=== PATIENT | male | born 1950 | race Caucasian/White ===

== ENCOUNTER 2021-01-18 19:29 | Inpatient (IN) | payer OTHER, MEDICARE ==
[~2021-01-18] VITALS: Ht 182.9 cm; Wt 136.9 kg
[2021-01-18 19:51] LABS: BASO # 0.1 x10^3/uL (0.0-0.2); BASO % 1 % (0-3); EOS # 0.6 x10^3/uL (0.0-0.7); EOS % 5 % (0-3); HEMATOCRIT 51.9 % (39.0-53.0); HEMOGLOBIN 17.6 g/dL (13.0-17.5); LYMPH # 2.2 x10^3/uL (1.0-4.8); LYMPH % 19 % (24-48); MEAN CORPUSCULAR HEMOGLOBIN 32 pg (25-35); MEAN CORPUSCULAR HGB CONC 34 g/dL (31-37); MEAN CORPUSCULAR VOLUME 96 fL (79-100); MONO # 0.9 x10^3/uL (0.0-1.1); MONO % 8 % (0-9); NEUT % 68 % (31-73); PLATELET COUNT 275 x10^3/uL (140-400); RED BLOOD COUNT 5.43 x10^6/uL (4.30-5.70); RED CELL DISTRIBUTION WIDTH 14.1 % (11.5-14.5); WHITE BLOOD COUNT 11.9 x10^3/uL (4.0-11.0)
--- NOTE | 2021-01-18 19:55 | RAD ---
EXAMINATION: Chest radiograph. VIEWS: Single view COMPARISON: None INDICATION:70 years, Male, chest pain. FINDINGS: Enlarged cardiomediastinal silhouette. Tortuous thoracic aorta. Bilateral perihilar and bibasilar pat kali and reticular opacities. Right costophrenic angle is off image. No sizable pleural effusion or pn eumothorax. No acute osseous process. Right shoulder arthroplasty. IMPRESSION: Bilateral perihilar and bibasilar patchy and reticular opacities. Differential includes pulmonary ana ma, versus multifocal pneumonia. Electronically signed by: Chelsey Lorenz MD (01/18/2021 7:52 PM) [facility]
[2021-01-18 20:00] LABS: CALCIUM 8.7 mg/dL (8.5-10.1); CREATININE 1.3 mg/dL (0.7-1.3); GFR 54.7; POTASSIUM 4.7 mmol/L (3.5-5.1)
[2021-01-18 20:06] LABS: ALBUMIN 3.8 g/dL (3.4-5.0); ALBUMIN/GLOBULIN RATIO 0.9 (1.0-1.7); MAGNESIUM 2.2 mg/dL (1.8-2.4); TOTAL BILIRUBIN 0.8 mg/dL (0.2-1.0)
[2021-01-18] MEDS ORDERED: IOHEXOL 350 MG/ML 100 ML VIAL. IV ONE (20:45)
[2021-01-18] MEDS ORDERED: MORPHINE SULFATE 4 MG/ML INJ. IVP ONE (20:45)
[2021-01-18] MEDS ORDERED: CONTRAST GIVEN. MC PRN (20:45)
--- NOTE | 2021-01-18 21:02 | PHYS DOC ---
Past Medical History Past Medical History: Hypertension, Other (PE) Past Surgical History: Other (left shoulder replacement, knee surgery) Smoking Status: Former Smoker Alcohol Use: None Drug Use: None General Adult EDM: Chief Complaint: CHEST PAIN HPI: HPI: Patient is a 70 year old male who presented to ER for evaluation of left-sided chest pain, left scapular pain started tonight. Patient said the pain is sharp stabbing in nature, worse when he takes deep breaths or cough. Patient had have a cough for about 3 weeks, he was seen by his doctor, was tested negative for COVID-19, was prescribed Zithromax. Patient finished the antibiotic already , patient was doing much better with the cough but still having trouble breathing with exertion. Patient is a former smoker. Patient denies history of diabetic, no history of heart problem . Patient has history of left shoulder replacement, left knee replacement. 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 Patient is currently not on any blood thinner. Patient said he was vaccinated for COVID-19. Patient says 20 years ago he had a mass in his left lung, thoracic surgeon removed it, it came back benign. Patient said about 2 weeks ago he fell off of his staircase, rolled down on his back. Review of Systems: Review of Systems: Constitutional: Denies fever or chills. [] Eyes: Denies change in visual acuity. [] HENT: Denies nasal congestion or sore throat. [] Respiratory: Positive for cough and trouble breathing. Cardiovascular: Positive for left-sided chest pain. GI: Denies abdominal pain, nausea, vomiting, bloody stools or diarrhea. [] : Denies dysuria. [] Musculoskeletal: Denies back pain or joint pain. [] Integument: Denies rash. [] Neurologic: Denies headache, focal weakness or sensory changes. [] Endocrine: Denies polyuria or polydipsia. [] Lymphatic: Denies swollen glands. [] Psychiatric: Denies depression or anxiety. [] Heart Score: C/O Chest Pain: Yes HEART Score for Chest Pain: HEART Score for Chest Pain Response (Comments) Value History Moderately Suspicious 1 ECG Nonspecific Repolarizatio 1 Age > 65 2 Risk Factors >3 Risk Factors or Hx CAD 2 Troponin < Normal Limit 0 Total 6 Risk Factors: Risk Factors: DM, Current or recent (<one month) smoker, HTN, HLP, family history of CAD, obesity. Risk Scores: Score 0 - 3: 2.5% MACE over next 6 weeks - Discharge Home Score 4 - 6: 20.3% MACE over next 6 weeks - Admit for Clinical Observation Score 7 - 10: 72.7% MACE over next 6 weeks - Early Invasive Strategies Current Medications: Current Medications Medications (Trade) Dose Ordered Sig/Jignesh Start Time Stop Time Status Last Admin Dose Admin Info (CONTRAST GIVEN -- Rx MONITORING) 1 each PRN DAILY PRN 01/18/21 20:45 01/20/21 20:44 Iohexol (Omnipaque 350 Mg/ml) 90 ml 1X ONCE 01/18/21 20:45 01/18/21 20:46 DC Morphine Sulfate (Morphine Sulfate) 4 mg 1X ONCE 01/18/21 20:45 01/18/21 20:46 DC 01/18/21 20:46 4 MG Allergies: Allergies: Allergies Coded Allergies Type Severity Reaction Last Updated Verified No Known Drug Allergies 01/18/21 No Physical Exam: PE: Constitutional: Well developed, well nourished, no acute distress, non-toxic appearance. [] HENT: Normocephalic, atraumatic, bilateral external ears normal, oropharynx moist, no oral exudates, nose normal. [] Eyes: PERRLA, EOMI, conjunctiva normal, no discharge. [] Neck: Normal range of motion, no tenderness, supple, no stridor. [] Cardiovascular:Heart rate regular rhythm, no murmur [] Lungs & Thorax: Bilateral breath sounds clear to auscultation [] Abdomen: Bowel sounds normal, soft, no tenderness, no masses, no pulsatile masses. [] Skin: Warm, dry, no erythema, no rash. [] Back: No tenderness, no CVA tenderness. [] Extremities: No tenderness, no cyanosis, no clubbing, ROM intact, no edema. [] Neurologic: Alert and oriented X 3, normal motor function, normal sensory function, no focal deficits noted. [] Psychologic: Affect normal, judgement normal, mood normal. [] Current Patient Data: Labs: Laboratory Tests Test 01/18/21 19:40 White Blood Count 11.9 x10^3/uL (4.0-11.0) H Red Blood Count 5.43 x10^6/uL (4.30-5.70) Hemoglobin 17.6 g/dL (13.0-17.5) H Hematocrit 51.9 % (39.0-53.0) Mean Corpuscular Volume 96 fL (79-100) Mean Corpuscular Hemoglobin 32 pg (25-35) Mean Corpuscular Hemoglobin Concent 34 g/dL (31-37) Red Cell Distribution Width 14.1 % (11.5-14.5) Platelet Count 275 x10^3/uL (140-400) Neutrophils (%) (Auto) 68 % (31-73) Lymphocytes (%) (Auto) 19 % (24-48) L Monocytes (%) (Auto) 8 % (0-9) Eosinophils (%) (Auto) 5 % (0-3) H Basophils (%) (Auto) 1 % (0-3) Neutrophils # (Auto) 8.0 x10^3/uL (1.8-7.7) H Lymphocytes # (Auto) 2.2 x10^3/uL (1.0-4.8) Monocytes # (Auto) 0.9 x10^3/uL (0.0-1.1) Eosinophils # (Auto) 0.6 x10^3/uL (0.0-0.7) Basophils # (Auto) 0.1 x10^3/uL (0.0-0.2) Sodium Level 137 mmol/L (136-145) Potassium Level 4.7 mmol/L (3.5-5.1) Chloride Level 99 mmol/L (98-107) Carbon Dioxide Level 28 mmol/L (21-32) Anion Gap 10 (6-14) Blood Urea Nitrogen 15 mg/dL (8-26) Creatinine 1.3 mg/dL (0.7-1.3) Estimated GFR (Cockcroft-Gault) 54.7 BUN/Creatinine Ratio 12 (6-20) Glucose Level 102 mg/dL (70-99) H Calcium Level 8.7 mg/dL (8.5-10.1) Magnesium Level 2.2 mg/dL (1.8-2.4) Total Bilirubin 0.8 mg/dL (0.2-1.0) Aspartate Amino Transferase (AST) 26 U/L (15-37) Alanine Aminotransferase (ALT) 50 U/L (16-63) Alkaline Phosphatase 71 U/L (46-116) Troponin I High Sensitivity 11 ng/L (4-75) YE-Kmg-O-Type Natriuretic Peptide 47 pg/mL (0-124) Total Protein 8.0 g/dL (6.4-8.2) Albumin 3.8 g/dL (3.4-5.0) Albumin/Globulin Ratio 0.9 (1.0-1.7) L Lipase 144 U/L (73-393) Laboratory Tests 01/18/21 19:40 Laboratory Tests 01/18/21 19:40 Vital Signs: Vital Signs Date Time Temp Pulse Resp B/P (MAP) Pulse Ox O2 Delivery O2 Flow Rate FiO2 01/18/21 20:46 Room Air EKG: EKG: EKG was done at 7:42 PM, heart rate 100 bpm, sinus rhythm, incomplete right bundle branch block, no ST segment elevation, normal axis Radiology/Procedures: Radiology/Procedures: [][address] [id number] IMAGING REPORT Signed PATIENT: MARCO CASE ACCOUNT: [id number] : 1950 LOCATION: ER AGE: 70 SEX: M EXAM STATUS: REG ER ORD. PHYSICIAN: BARBARA AGUIRRE DO REASON: CHEST PAIN PROCEDURE: PORTABLE CHEST 1V EXAMINATION: Chest radiograph. VIEWS: Single view COMPARISON: None INDICATION:70 years, Male, chest pain. FINDINGS: Enlarged cardiomediastinal silhouette. Tortuous thoracic aorta. Bilateral perihilar and bibasilar patchy and reticular opacities. Right costophrenic angle is off image. No sizable pleural effusion or pneumothorax. No acute osseous process. Right shoulder arthroplasty. IMPRESSION: Bilateral perihilar and bibasilar patchy and reticular opacities. Differential i ncludes pulmonary edema, versus multifocal pneumonia. Electronically signed by: Agata Lorenz MD (01/18/2021 7:52 PM) [facility] DICTATED and SIGNED BY: AGATA LORENZ MD DATE: 01/18/[id number] [id number] [facility] [place] [address] IMAGING REPORT Signed PATIENT: MARCO CASE ACCOUNT: [id number] : 1950 LOCATION: ER AGE: 70 SEX: M EXAM STATUS: REG ER ORD. PHYSICIAN: BARBARA AGUIRRE DO REASON: chest pain, soa PROCEDURE: CT ANGIOGRAPHY CHEST Exam: CT of chest with contrast INDICATION: Chest pain, short of air TECHNIQUE: Sequential axial images through the chest obtained following the administration of 90 mL of Isovue-370 IV contrast. Sagittal and coronal reformatted images were reconstructed from the axial data and reviewed. 3-D refo rmatted images were reconstructed from the axial data and reviewed. Exposure: One or more of the following in the visualized dose reduction techniques were utilized for this examination: 1. Automated exposure control 2. Adjustment of the MA and/or KV according to patient size 3. Use of iterative of reconstructive technique Comparisons: Chest x-ray same day FINDINGS: Visual is portions of the thyroid are unremarkable. No enlarged mediastinal lymph nodes are identified. It size is normal. No pericardial effusion. Thoracic aorta has a normal course and caliber. Pulmonary artery is not enlarged. Extensive pulmonary emboli noted within the right lung involving the right main pulmonary artery extending into lobar and segmental branches. Airways are patent. Consolidative changes noted in the left lower lobe. Cystic area at the left major fissure, may relate to sequela from prior trauma. No pneumothorax. There is a trace left pleural effusion. Visualized upper abdomen is unremarkable. No suspicious osseous lesions or acute fractures. Postprocedural changes at the posterior left ribs. IMPRESSION: 1. Extensive pulmonary embolus within the right lung. There is mild enlargement of the right lateral ventricle, correlate with troponin for right heart strain. 2. Consolidation in the left lower lobe correlate for pneumonia. 3. Left pleural effusion. 4. Sequela of the extensive trauma or surgery to the left thorax. Electronically signed by: David Biggs MD (01/18/2021 9:14 PM) [facility] DICTATED and SIGNED BY: DAVID BIGGS MD DATE: 01/18/21 [id number] Course & Med Decision Making: Course & Med Decision Making Pertinent Labs and Imaging studies reviewed. (See chart for details) Patient is a 70-year-old male who present to ER due to left-sided chest pain. Patient was found to have extensive PE on the right side of his lung, he also had consolidation at the base of his left lung. Patient will be admitted to hospital for heparin drip to treat PE and IV antibiotics for the pneumonia. Di scussed with hospitalist on-call Dr. Ramirez who agreed to admit the patient. Lyndsay Disclaimer: Lyndsay Disclaimer: This electronic medical record was generated, in whole or in part, using a voice recognition dictation system. Departure Departure Impression: Primary Impression: PE (pulmonary thromboembolism) Additional Impression: Pneumonia Disposition: ADMITTED INPATIENT Admitting Physician: ALYSA (DR. RAMIREZ) Condition: STABLE Referrals: UNKNOWN PCP NAME (PCP) BARBARA AGUIRRE DO Jan 18, 2021 21:01
--- NOTE | 2021-01-18 21:16 | RAD ---
Exam: CT of chest with contrast INDICATION: Chest pain, short of air TECHNIQUE: Sequential axial images through the chest obtained following the administration of 90 mL o f Isovue-370 IV contrast. Sagittal and coronal reformatted images were reconstructed from the axial d tequila and reviewed. 3-D reformatted images were reconstructed from the axial data and reviewed. Exposure: One or more of the following in the visualized dose reduction techniques were utilized for this examination: 1. Automated exposure control 2. Adjustment of the MA and/or KV according to patient size 3. Use of iterative of reconstructive technique Comparisons: Chest x-ray same day FINDINGS: Visual is portions of the thyroid are unremarkable. No enlarged mediastinal lymph nodes are identifie d. It size is normal. No pericardial effusion. Thoracic aorta has a normal course and caliber. Pulmonary artery is not enlarged. Extensive pulmonary emboli noted within the right lung involving the right m ain pulmonary artery extending into lobar and segmental branches. Airways are patent. Consolidative changes noted in the left lower lobe. Cystic area at the left major fissure, may relate to sequela from prior trauma. No pneumothorax. There is a trace left pleural effusion. Visualized upper abdomen is unremarkable. No suspicious osseous lesions or acute fractures. Postprocedural changes at the posterior left ribs. IMPRESSION: 1. Extensive pulmonary embolus within the right lung. There is mild enlargement of the right lateral ventricle, correlate with troponin for right heart strain. 2. Consolidation in the left lower lobe correlate for pneumonia. 3. Left pleural effusion. 4. Sequela of the extensive trauma or surgery to the left thorax. Electronically signed by: David Britton MD (01/18/2021 9:14 PM) [facility]
[2021-01-18] MEDS ORDERED: PIPERACILLIN/TAZOBACTAM 3.375 GM in IV NORMAL SALINE 50ML 50 ML IV ONE (21:30)
[2021-01-18] MEDS ORDERED: PIP/TAZO PER PHARMACY MC PRN (21:45)
[2021-01-18] MEDS ORDERED: ONDANSETRON PF 4 MG/2 ML VIAL. IVP PRN (21:45)
[2021-01-18] MEDS ORDERED: HEPARIN for IV BOLUS 10,000 UNIT/10 ML VIAL. IV PRN ×2 (21:45)
[2021-01-18] MEDS: IV NORMAL SALINE 1000ML BAG 1,000 ML IV SCH (21:45)
[2021-01-18] MEDS ORDERED: HEPARIN for IV BOLUS 10,000 UNIT/10 ML VIAL. IV ONE (21:45)
[2021-01-18 22:02] LABS: PROTHROMBIN TIME PATIENT 14.8 SEC (11.7-14.0)
[2021-01-18] MEDS: HEPARIN 25,000UTS/250ML PREMIX 250 ML IV PRN (22:34)
[2021-01-19] VITALS (7 sets, daily range): BP systolic 98–156; BP diastolic 49–92
[2021-01-19] MEDS: MORPHINE SULFATE 4 MG/ML INJ. IVP PRN ×6 (00:27→21:34)
[2021-01-19] MEDS ORDERED: LISI10TA16 PO (00:47)
[2021-01-19] MEDS ORDERED: LEVO75TA5 PO (00:47)
--- NOTE | 2021-01-19 04:46 | EKG ---
[facility] [address] [place] [address] Test Date: 2021-01-18 Test Time: 19:42:13 Pat Name: MARCO CASE Department: Room: 4 1 Gender: M Chef De Froid: : 1950 Requested By: BARBARA AGUIRRE Order Number: [id number] Reading MD: Christopher Kolb Measurements Intervals Rachel Rate: 100 P: 32 SD: 166 QRS: 29 QRSD: 98 T: 46 QT: 334 QTc: 434 Interpretive Statements SINUS RHYTHM INCOMPLETE RIGHT BUNDLE BRANCH BLOCK NON SPECIFIC ST-T WAVE CHANGES Electronically Signed On 01-25-2021 10:40:34 [employer] by Christopher Kolb
[2021-01-19] MEDS: PIPERACILLIN/TAZOBACTAM 3.375 GM in IV NORMAL SALINE 50ML 50 ML IV SCH ×4 (06:44→23:57)
--- NOTE | 2021-01-19 07:56 | PDOC1 ---
History and Physical Date of Service: DOS: DATE: 01/19/21 TIME: 07:45 Chief Complaint: Chief Complain: Back pain History of Present Illness: HPI: History obtained from discussion with the ED physician and chart review: 70-year-old male with past medical history of hypertension and history of pulmonary embolism after knee surgery when he was 17 years old comes in with left-sided chest pain and left-sided scapular pain after falling. He states that after he fell from standing position on around 2 steps he felt sharp stabbi ng pain in nature and associated with deep breathing and a cough. Apparently patient has also had a cough for about 3 weeks and he was tested for Covid and was negative and is given Zithromax. Patient did finish and complete his antibiotic course was feeling better with the cough but still have trouble breathing with exertion. Hospice medical history of smoking. Patient did take warfarin after his first pulmonary embolism but stopped it after about 6 to 8 months. Patient is COVID-19 vaccinated. Patient currently denies any fevers, shortness of breath, abdominal pain, diarrhea, nausea vomiting, phlegm production, hematuria or dysuria. Past Medical/Surgical History: PMH/PSH: Past Medical History: Hypertension, PE Past Surgical History: Left pulmonary resection for benign mass, left shoulder replacement, knee surgery Allergies: Allergies: Coded Allergies: No Known Drug Allergies (Unverified , 01/18/21) Family History: Family History: Reviewed with no relevant findings Social History: Social History: Smoking Status: Former Smoker Alcohol Use: None Drug Use: None Current Medications: Current Medications Current Medications Morphine Sulfate (Morphine Sulfate) 4 mg 1X ONCE IVP Last administered on 01/18/21at 20:46; Start 01/18/21 at 20:45; Stop 01/18/21 at 20:46; Status DC Iohexol (Omnipaque 350 Mg/ml) 90 ml 1X ONCE IV Last administered on 01/18/21at 21:02; Start 01/18/21 at 20:45; Stop 01/18/21 at 20:46; Status DC Info (CONTRAST GIVEN -- Rx MONITORING) 1 each PRN DAILY PRN MC SEE COMMENTS; Start 01/18/21 at 20:45; Stop 01/20/21 at 20:44 Piperacillin Sod/ Tazobactam Sod 3.375 gm/Sodium Chloride 50 ml @ 100 mls/hr 1X ONCE IV Last administered on 01/18/21at 22:25; Start 01/18/21 at 21:30; Stop 01/18/21 at 21:59; Status DC Ondansetron HCl (Zofran) 4 mg PRN Q8HRS PRN IVP NAUSEA/VOMITING; Start 01/18/21 at 21:45; Stop 01/19/21 at 21:44 Morphine Sulfate (Morphine Sulfate) 4 mg PRN Q2HR PRN IVP PAIN Last administered on 01/19/21at 05:15; Start 01/18/21 at 21:45; Stop 01/19/21 at 21:44 Sodium Chloride 1,000 ml @ 75 mls/hr [id number] IV Last administered on 01/18/21at 21:45; Start 01/18/21 at 21:45; Stop 01/19/21 at 21:44 Piperacillin Sod/ Tazobactam Sod (Zosyn Per Pharmacy) 1 each PRN DAILY PRN MC SEE COMMENTS; Start 01/18/21 at 21:45 Heparin Sodium (Porcine) (Heparin Sodium) 10,000 unit 1X ONCE IV Last administered on 01/18/21at 22:33; Start 01/18/21 at 21:45; Stop 01/18/21 at 21:51 ; Status DC Heparin Sodium/ Dextrose 250 ml @ 21.41 mls/ hr CONT PRN IV PER PROTOCOL Last administered on 01/18/21at 22:34; Start 01/18/21 at 21:45 Heparin Sodium (Porcine) (Heparin Sodium) 4,000 unit PRN Q6HRS PRN IV FOR UFH LEVEL LESS THAN 0.2; Start 01/18/21 at 21:45 Heparin Sodium (Porcine) (Heparin Sodium) 2,000 unit PRN Q6HRS PRN IV FOR UFH LEVEL 0.2 - 0.29; Start 01/18/21 at 21:45 Piperacillin Sod/ Tazobactam Sod 3.375 gm/Sodium Chloride 50 ml @ 100 mls/hr Q6HRS IV Last administered on 01/19/21at 06:44; Start 01/19/21 at 06:00 Active Scripts Active Reported Lisinopril 10 Mg Tablet 10 Mg PO DAILY Levothyroxine Sodium 75 Mcg Tablet 75 Mcg PO DAILYAC ROS: Review of Systems Review of System REVIEW OF SYSTEMS: GENERAL: Denies weakness SKIN: No bruising, hair changes or rashes. EYES: No blurred, double or loss of vision. NOSE AND THROAT: No history of nosebleeds, hoarseness or sore throat. HEART: No history of palpitations, chest pain or shortness of breath on exertion. LUNGS: Denies cough, hemoptysis, wheezing or shortness of breath. GASTROINTESTINAL: Denies changes in appetite, nausea, vomiting, diarrhea or constipation. GENITOURINARY: No history of frequency, urgency, hesitancy or nocturia. NEUROLOGIC: Denies history of numbness, tingling, or tremor. PSYCHIATRIC: No history of panic, anxiety or depression. ENDOCRINE: No history of heat or cold intolerance, polyuria or polydipsia. EXTREMITIES: Denies joint pain, pain on walking or stiffness. Physical Exam: Vital Signs: Vital Signs Date Time Temp Pulse Resp B/P (MAP) Pulse Ox O2 Delivery O2 Flow Rate FiO2 01/19/21 05:45 94 Nasal Cannula 2.0 01/19/21 03:35 97.5 83 20 98/49 (65) 97.5 Physcial Exam: GEN: No apparent distress. Alert and oriented HEENT: Normal cephalic, atraumatic, external auditory canals are patent EYES: Extraocular muscles are intact, pupil are equally round and reactive to light and accommodation MUSCULOSKELETAL: Well developed , well nourished, good range of motion ENDOCRINE: No thyromegaly was palpated LYMPHATICS: No cervical chain or axillary nodes were noted HEMATOPOIETIC: No bruising NECK: Supple, no JVD, no thyromegaly was noted LUNGS: Clear to auscultation in all lung martin without rhonchi or wheezing HEART: RRR, S!, S2 present. Peripheral pulses intact, no obvious murmurs noted ABDOMEN: Soft, nontender. Positive bowel sounds, no organomegaly, normal bowel sounds EXTREMITIES: Without clubbing, cyanosis, or edema. Pedal pulses intact. Negative Homans sign NEUROLOGIC: Normal speech and tone. A&O x 3, moves all extremities, no obvious focal deficits PSYCHIATRIC: Normal affect, normal mood. Stable SKIN: No ulcerations or rashes, good skin turgor, no jaundice VASCULAR: Good capillary refill, neurovascular bundle appears to be intact Labs: Labs: Laboratory Tests Test 01/18/21 19:40 01/18/21 21:25 01/18/21 21:29 01/18/21 21:46 White Blood Count 11.9 x10^3/uL (4.0-11.0) Red Blood Count 5.43 x10^6/uL (4.30-5.70) Hemoglobin 17.6 g/dL (13.0-17.5) Hematocrit 51.9 % (39.0-53.0) Mean Corpuscular Volume 96 fL (79-100) Mean Corpuscular Hemoglobin 32 pg (25-35) Mean Corpuscular Hemoglobin Concent 34 g/dL (31-37) Red Cell Distribution Width 14.1 % (11.5-14.5) Platelet Count 275 x10^3/uL (140-400) Neutrophils (%) (Auto) 68 % (31-73) Lymphocytes (%) (Auto) 19 % (24-48) Monocytes (%) (Auto) 8 % (0-9) Eosinophils (%) (Auto) 5 % (0-3) Basophils (%) (Auto) 1 % (0-3) Neutrophils # (Auto) 8.0 x10^3/uL (1.8-7.7) Lymphocytes # (Auto) 2.2 x10^3/uL (1.0-4.8) Monocytes # (Auto) 0.9 x10^3/uL (0.0-1.1) Eosinophils # (Auto) 0.6 x10^3/uL (0.0-0.7) Basophils # (Auto) 0.1 x10^3/uL (0.0-0.2) Sodium Level 137 mmol/L (136-145) Potassium Level 4.7 mmol/L (3.5-5.1) Chloride Level 99 mmol/L (98-107) Carbon Dioxide Level 28 mmol/L (21-32) Anion Gap 10 (6-14) Blood Urea Nitrogen 15 mg/dL (8-26) Creatinine 1.3 mg/dL (0.7-1.3) Estimated GFR (Cockcroft-Gault) 54.7 BUN/Creatinine Ratio 12 (6-20) Glucose Level 102 mg/dL (70-99) Lactic Acid Level 1.6 mmol/L (0.4-2.0) Calcium Level 8.7 mg/dL (8.5-10.1) Magnesium Level 2.2 mg/dL (1.8-2.4) Total Bilirubin 0.8 mg/dL (0.2-1.0) Aspartate Amino Transf (AST/SGOT) 26 U/L (15-37) Alanine Aminotransferase (ALT/SGPT) 50 U/L (16-63) Alkaline Phosphatase 71 U/L (46-116) Troponin I High Sensitivity 11 ng/L (4-75) 10 ng/L (4-75) NF-Jmt-G-Type Natriuretic Peptide 47 pg/mL (0-124) Total Protein 8.0 g/dL (6.4-8.2) Albumin 3.8 g/dL (3.4-5.0) Albumin/Globulin Ratio 0.9 (1.0-1.7) Lipase 144 U/L (73-393) SARS-CoV-2 Antigen (Rapid) Negative (NEGATIVE) Prothrombin Time 14.8 SEC (11.7-14.0) Prothromb Time International Ratio 1.2 (0.8-1.1) Activated Partial Thromboplast Time 32 SEC (24-38) Test 01/19/21 04:35 Heparin Anti-Xa Act, Unfractionated 0.84 IU/mL (0.30-0.70) Troponin I High Sensitivity 9 ng/L (4-75) Laboratory Tests Test 01/18/21 19:40 01/18/21 21:25 01/18/21 21:29 01/18/21 21:46 White Blood Count 11.9 x10^3/uL (4.0-11.0) Red Blood Count 5.43 x10^6/uL (4.30-5.70) Hemoglobin 17.6 g/dL (13.0-17.5) Hematocrit 51.9 % (39.0-53.0) Mean Corpuscular Volume 96 fL (79-100) Mean Corpuscular Hemoglobin 32 pg (25-35) Mean Corpuscular Hemoglobin Concent 34 g/dL (31-37) Red Cell Distribution Width 14.1 % (11.5-14.5) Platelet Count 275 x10^3/uL (140-400) Neutrophils (%) (Auto) 68 % (31-73) Lymphocytes (%) (Auto) 19 % (24-48) Monocytes (%) (Auto) 8 % (0-9) Eosinophils (%) (Auto) 5 % (0-3) Basophils (%) (Auto) 1 % (0-3) Neutrophils # (Auto) 8.0 x10^3/uL (1.8-7.7) Lymphocytes # (Auto) 2.2 x10^3/uL (1.0-4.8) Monocytes # (Auto) 0.9 x10^3/uL (0.0-1.1) Eosinophils # (Auto) 0.6 x10^3/uL (0.0-0.7) Basophils # (Auto) 0.1 x10^3/uL (0.0-0.2) Sodium Level 137 mmol/L (136-145) Potassium Level 4.7 mmol/L (3.5-5.1) Chloride Level 99 mmol/L (98-107) Carbon Dioxide Level 28 mmol/L (21-32) Anion Gap 10 (6-14) Blood Urea Nitrogen 15 mg/dL (8-26) Creatinine 1.3 mg/dL (0.7-1.3) Estimated GFR (Cockcroft-Gault) 54.7 BUN/Creatinine Ratio 12 (6-20) Glucose Level 102 mg/dL (70-99) Lactic Acid Level 1.6 mmol/L (0.4-2.0) Calcium Level 8.7 mg/dL (8.5-10.1) Magnesium Level 2.2 mg/dL (1.8-2.4) Total Bilirubin 0.8 mg/dL (0.2-1.0) Aspartate Amino Transf (AST/SGOT) 26 U/L (15-37) Alanine Aminotransferase (ALT/SGPT) 50 U/L (16-63) Alkaline Phosphatase 71 U/L (46-116) Troponin I High Sensitivity 11 ng/L (4-75) 10 ng/L (4-75) AW-[id number]-[id number]-Type Natriuretic Peptide 47 pg/mL (0-124) Total Protein 8.0 g/dL (6.4-8.2) Albumin 3.8 g/dL (3.4-5.0) Albumin/Globulin Ratio 0.9 (1.0-1.7) Lipase 144 U/L (73-393) SARS-CoV-2 Antigen (Rapid) Negative (NEGATIVE) Prothrombin Time 14.8 SEC (11.7-14.0) Prothromb Time International Ratio 1.2 (0.8-1.1) Activated Partial Thromboplast Time 32 SEC (24-38) Test 01/19/21 04:35 Heparin Anti-Xa Act, Unfractionated 0.84 IU/mL (0.30-0.70) Troponin I High Sensitivity 9 ng/L (4-75) Images: Images PROCEDURE: PORTABLE CHEST 1V IMPRESSION: Bilateral perihilar and bibasilar patchy and reticular opacities. Differential includes pulmonary edema, versus multifocal pneumonia. PROCEDURE: CT ANGIOGRAPHY CHEST IMPRESSION: 1. Extensive pulmonary embolus within the right lung. There is mild enlargement of the right lateral ventricle, correlate with troponin for right heart strain. 2. Consolidation in the left lower lobe correlate for pneumonia. 3. Left pleural effusion. 4. Sequela of the extensive trauma or surgery to the left thorax. Assessment/Plan Assessment/Plan Acute pulmonary embolism Acute community-acquired pneumonia, possible gram-negative organisms History of pulmonary embolism Morbid obesity Admit to hospitalist service for further management We will transition heparin drip to Eliquis tomorrow Continue with empiric IV antibiotics Pending blood and sputum cultures Pending Legionella urine antigen and MRSA PCR screen Heparin drip for DVT prophylaxis Cardiac diet CODE STATUS full Discussed with RN and SW Disposition inpatient management as above DPOA: A total of 45 minutes of critical care time was spent in reviewing chart, labs, and images. Discussed with RN and SW. In addition to my E/M visit, advance care planning done with A total time of 20 minutes was spent from 730 to 750 face to face in discussion regarding the patient's goals of care, CODE STATUS. Justifications for Admission Other Justification JENNIFER STEVENS MD Jan 19, 2021 07:56
[2021-01-19] MEDS: HEPARIN 25,000UTS/250ML PREMIX 250 ML IV PRN (09:04)
--- NOTE | 2021-01-19 10:56 | NUR ---
SS following for discharge planning. SS reviewed pt chart and discussed with pt RN. Pt is from home with spouse and is currently requiring oxygen at two liters nasal canula. COVID19 negative. Pt on Heparin drip. Pt on IV Zosyn. SS will continue to follow for discharge planning.
[2021-01-19] MEDS: IV NORMAL SALINE 1000ML BAG 1,000 ML IV SCH (11:05)
[2021-01-19] MEDS: IPRATROPIUM/ALBUTEROL 20/100mcg/INH INHALER. INH SCH ×3 (12:05→20:00)
[2021-01-19] MEDS ORDERED: IPRATRPIUM/ALBUTEROL 0.5/2.5MG 3 ML NEBU. NEB SCH (12:30)
[2021-01-19] MEDS: LEVOTHYROXINE 75 MCG TABLET PO SCH (17:33)
[2021-01-19] MEDS: APIXABAN 5 MG TABLET. PO SCH (20:03)
[2021-01-19] MEDS: LACTOBACILLUS RHAMNOSUS GG 1 CAPSULE. PO SCH (20:03)
--- NOTE | 2021-01-19 23:39 | NUR ---
PT SPO2 DROPPED DRAMATICALLY TO THE 70S HE FELL ASLEEP WHILE I WAS NEARBY. UPON ENTERING PT ROOM HE AWOKE AND RECOVERED TO MID 80S. UPON A CURSORY ASSESSMENT PT SEEMS TO HAVE RISKS FOR [place]. PT DID SAY THAT HE HAD A SLEEP STUDY YEARS AGO, IT WAS NOT GOOD BUT "THERE IS NO WAY HE WILL WEAR THE MASK". I DID INFORM THE PATIENT OF THE SEVERE DESATURATION, "PT STATES THAT HE'S OK" Addendum: 01/20/21 at 0009 by MEENU CARLOS RT INCREASED O2 FLOW TO 3LNC AND SO2 INCREASED TO 3LNC AND SPO2 WENT UP TO 94% WHILE HE'S AWAKE.
[2021-01-20] MEDS: MORPHINE SULFATE 2 MG/ML INJ. IV PRN ×3 (00:44→11:57)
[2021-01-20 02:30] VITALS: BP 148/82
[2021-01-20] MEDS: PIPERACILLIN/TAZOBACTAM 3.375 GM in IV NORMAL SALINE 50ML 50 ML IV SCH ×2 (06:21→11:59)
[2021-01-20 07:00] VITALS: BP 123/73
[2021-01-20] MEDS: APIXABAN 5 MG TABLET. PO SCH (08:09)
[2021-01-20] MEDS: IPRATROPIUM/ALBUTEROL 20/100mcg/INH INHALER. INH SCH ×2 (08:09→11:59)
[2021-01-20] MEDS: LACTOBACILLUS RHAMNOSUS GG 1 CAPSULE. PO SCH (08:09)
[2021-01-20] MEDS: LEVOTHYROXINE 75 MCG TABLET PO SCH (08:09)
[2021-01-20 08:35] LABS: HEMATOCRIT 46.4 % (39.0-53.0); HEMOGLOBIN 15.7 g/dL (13.0-17.5); RED BLOOD COUNT 4.79 x10^6/uL (4.30-5.70); RED CELL DISTRIBUTION WIDTH 14.3 % (11.5-14.5); WHITE BLOOD COUNT 8.9 x10^3/uL (4.0-11.0)
[2021-01-20 11:00] VITALS: BP 133/64
[2021-01-20] MEDS ORDERED: APIX5TAB PO (11:24)
[2021-01-20] MEDS ORDERED: DOXY100C3 PO (11:24)
[2021-01-20] MEDS ORDERED: AMOX1TAB58 PO (11:24)
--- NOTE | 2021-01-20 11:25 | DISCH ---
DISCHARGE INSTRUCTIONS Condition on Discharge Condition on Discharge: Stable Activity After Discharge Activity Instructions for Disc: Resume previous activity Exercise Instruction after Dis: Walk 15 min, 3 x per day Driving Instructions after Dis: Do not drive today Diet after Discharge Diet after Discharge: Cardiac Contacting the DRVaishali after DC Call your doctor for: Follow-Up Follow up with: PCP within 2 weeks of discharge Follow Up With: Vice President Media Relations MYKEL for sleep study JENNIFER STEVENS MD Jan 20, 2021 11:25
[2021-01-20] MEDS ORDERED: HYDROcodone/APAP 5/325MG 1 TAB TABLET PO PRN (13:45)
[2021-01-20] MEDS ORDERED: HYDR-2761 PO (13:47)
--- NOTE | 2021-01-20 14:07 | NUR ---
SS following up with discharge planning. SS reviewed pt chart and discussed with pt RN. Pt is currently requiring oxygen. COVID19 negative. Six minute walk ordered to assess oxygen needs. Pt needing none at rest and 6 liters with exertion. Script received. SS phoned and faxed script and clinical to [facility], ; fax [phone]. Oxygen tank provided for home. Discharge order on the chart for home with self care.
[2021-01-26] MEDS ORDERED: APIXABAN 5 MG TABLET. PO SCH (09:00)
--- NOTE | 2021-01-27 19:46 | PDOC3 ---
[facility]-Discharge Summary Date of Admission: Date of Admission: Jan 19, 2021 Date of Discharge: Date of Discharge: Jan 20, 2021 Discharge Diagnosis: Discharge Diagnosis: Acute pulmonary embolism Acute community-acquired pneumonia, possible gram-negative organisms History of pulmonary embolism Morbid obesity Hospital Course: Hospital Course: 70-year-old male with past medical history of hypertension and history of pulmonary embolism after knee surgery when he was 17 years old comes in with left-sided chest pain and left-sided scapular pain after falling. He states that after he fell from standing position on around 2 steps he felt sharp stabbing pain in nature and associated with deep breathing and a cough. Apparently patient has also had a cough for about 3 weeks and he was tested for Covid and was negative and is given Zithromax. Patient did finish and complete his antibiotic course was feeling better with the cough but still have trouble breathing with exertion. Hospice medical history of smoking. Patient did take warfarin after his first pulmonary embolism but stopped it after about 6 to 8 months. Patient is COVID-19 vaccinated. Patient currently denies any fevers, shortness of breath, abdominal pain, diarrhea, nausea vomiting, phlegm production, hematuria or dysuria. By day of discharge, pt was clinically stable and ready for discharge. He was starting on Eliquis. Rest of hospital course was uneventful Activity: Activity: Resume previous activity Medications: Home Meds Active Scripts Hydrocodone Bit/Acetaminophen (HYDROCODONE-APAP 5-325 ) 1 Tab Tablet, 1 TAB PO PRN Q6HRS PRN for PAIN for 3 Days, #12 TAB 0 Refills Prov:JENNIFER STEVENS MD 01/20/21 Doxycycline Hyclate (DOXYCYCLINE HYCLATE) 100 Mg Capsule, 1 CAP PO BID for PNEUMONIA for 5 Days, #10 CAP Prov:JENNIFER STEVENS MD 01/20/21 Amoxicillin/Potassium Clav (AUGMENTIN 500-125 TABLET) 1 Each Tablet, 1 TAB PO BID for pneumonia for 5 Days, #10 TAB 0 Refills Prov:JENNIFER STEVENS MD 01/20/21 Apixaban (ELIQUIS) 5 Mg Tablet, 5 MG PO BID for PE for 30 Days, #60 TAB 2 Refills Prov:JENNIFER STEVENS MD 01/20/21 Apixaban (ELIQUIS) 5 Mg Tablet, 10 MG PO BID for PE for 6 Days, #12 TAB Prov:JENNIFER STEVENS MD 01/20/21 Reported Medications Lisinopril (LISINOPRIL) 10 Mg Tablet, 10 MG PO DAILY for FOR HYPERTENSION, #30 TAB 0 Refills 01/19/21 Levothyroxine Sodium (LEVOTHYROXINE SODIUM) 75 Mcg Tablet, 75 MCG PO DAILYAC for THYROID SUPPLEMENT, #30 TAB 0 Refills 01/19/21 Scheduled Amoxicillin/Potassium Clav (Augmentin 500-125 Tablet), 1 TAB PO BID Apixaban (Eliquis), 10 MG PO BID Apixaban (Eliquis), 5 MG PO BID Doxycycline Hyclate (Doxycycline Hyclate), 1 CAP PO BID Levothyroxine Sodium (Levothyroxine Sodium), 75 MCG PO DAILYAC, (Reported) Lisinopril (Lisinopril), 10 MG PO DAILY, (Reported) Scheduled PRN Hydrocodone Bit/Acetaminophen (Hydrocodone-Apap 5-325 ), 1 TAB PO PRN Q6HRS PRN for PAIN Total Time: Total Time: Total time spent was 35 minutes in preparing scripts, discharge planning with SW and RN, and preparing this discharge summary. Patient seen and examined on day of discharge. Justicifation of Admission Dx: Justifications for Admission: Justification of Admission Dx: Yes Respiratory Failure: Severe Resp Distress JENNIFER STEVENS MD Jan 27, 2021 19:46
== END 2021-01-20 14:57 | disposition home or self-care (01) | DRG 177 ==
LOC: ER 19:29 → 6 SOUTH 21:31
PROVIDERS: ADMIT Internal Medicine; ATTEND Internal Medicine
DX: J15.6 Pneumonia due to other Gram-negative bacteria (principal); I26.99 Other pulmonary embolism without acute cor pulmonale; J90 Pleural effusion, not elsewhere classified; Z68.41 Body mass index [BMI] 40.0-44.9, adult; E66.01 Morbid (severe) obesity due to excess calories; I10 Essential (primary) hypertension; Z86.711 Personal history of pulmonary embolism; Z87.891 Personal history of nicotine dependence; Z91.81 History of falling; Z96.612 Presence of left artificial shoulder joint; Z96.652 Presence of left artificial knee joint; Z20.822 Contact with and (suspected) exposure to COVID-19
CPT/HCPCS: 36415; 71045; 71275; 80053; 83605; 83690; 83735; 83880; 84484; 85025; 85027; 85520; 85610; 85730; 87040; 87426; 87449; 87641; 93005; 94618; 94640; 96365; 96375; J1644; J2270; J2543; J7030; Q9967; U0003; U0005; 99285-25; G0378

== ENCOUNTER → 2021-03-16 | Outpatient (CLI) | payer OTHER, MEDICARE ==
[~2021-03-16] MED LIST: AMOX1TAB58 PO; APIX5TAB PO; DOXY100C3 PO; HYDR-2761 PO; IOHEXOL 350 MG/ML 100 ML VIAL. IV ONE; LEVO75TA5 PO; LISI10TA16 PO
--- NOTE | 2021-03-16 12:08 | RAD ---
EXAM: CT ANGIOGRAPHY OF THE CHEST WITH AND WITHOUT CONTRAST. HISTORY: Pulmonary embolism. Persistent cough. TECHNIQUE: Computed tomographic angiography of the chest was performed before and after the intraveno us administration of iodinated contrast. 3-D maximum intensity projections were also performed. One o r more of the following individualized dose reduction techniques were utilized for this examination: 1. Automated exposure control. 2. Adjustment of the mA and/or kV according to patient size. 3. Use of iterative reconstruction technique. COMPARISON: 01/18/2021. FINDINGS: Images of the upper abdomen reveal no acute abnormality. Bone windows reveal no suspicious lesions. Fractures of the left posterior seventh and eighth ribs appear subacute. Another of the nint h rib may be acute. These ribs are angulated posteriorly resulting in chest wall defect into which th e lateral aspect of the left lower lobe protrudes. There are limitations from motion artifact. This limits sensitivity for peripheral pulmonary emboli, particularly in the bases. An eccentric but rounded large filling defect within the right main pulmon kevon artery anteriorly is unchanged. The lumen of the right main pulmonary artery is severely narrowed distally. The more peripheral lobar radicles of the right pulmonary artery are appear to be excluded just beyond their origins. No new emboli are seen. There is no aortic dissection or aneurysm. There are no pathologically enlarged mediastinal or axillary lymph nodes. Calcified right hilar lymph nodes are likely secondary to old granulomatous disease. There is no pericardial effusion. The heart is not enlarged. Previously noted consolidation in the left lower lobe has partially resolved. A residual focus measur es 2.8 x 2.4 cm. There is a trace left pleural effusion. Interstitial and groundglass opacities with a perihilar and basilar predominance are more prominent than previously, but this may be secondary to motion artifact. A previously noted cavitary lesion along the left major fissure has resolved. IMPRESSION: 1. An eccentric filling defect within the right main pulmonary artery is unchanged. This may represen t a large chronic pulmonary embolus, versus extrinsic compression by an adjacent lymph node. The more peripheral pulmonary arteries of the right, middle and lower lobes appear to occlude shortly beyond their origin. This may reflect chronic pulmonary embolism, but extrinsic etiologies such as fibrosing mediastinitis should also be considered. No increasing mass suggestive of neoplasm is identified. 2. Motion artifact limits sensitivity for additional emboli, but none are seen. 3. Left lower lobe pneumonia has partially resolved. Another follow-up is suggested in 6-12 weeks to confirm resolution. 4. Perihilar and lower lobe predominant interstitial lung disease versus scarring in the setting of p rior inflammation. 5. Left posterior rib fractures are either subacute or acute as above. These are angulated posteriorl y, resulting in chest wall deformity. Electronically signed by: Karis George MD (03/16/2021 12:06 PM) [id number]
== END ==
LOC: CT 08:42
PROVIDERS: ATTEND Internal Medicine Pulmonary Disease
DX: I26.99 Other pulmonary embolism without acute cor pulmonale (principal); S22.42XA Multiple fractures of ribs, left side, initial encounter for closed fracture; M95.4 Acquired deformity of chest and rib; I28.8 Other diseases of pulmonary vessels; X58.XXXA Exposure to other specified factors, initial encounter; Y93.89 Activity, other specified; Y92.89 Other specified places as the place of occurrence of the external cause; Y99.8 Other external cause status
CPT/HCPCS: 71275; Q9967

== ENCOUNTER → 2021-03-22 | Outpatient (CLI) | payer OTHER, MEDICARE ==
[~2021-03-22] MED LIST changes: -IOHEXOL 350 MG/ML 100 ML VIAL. IV ONE
--- NOTE | 2021-03-22 14:49 | CARD ---
MR#: [id number] Date of Study: 03/22/2021 Ordering Physician: CLARISSA HARRISON, Referring Physician: CLARISSA HARRISON, Tech: Lizbet Kayyfortunato, [facility] APPROVED REPORT EXAM: Two-dimensional and M-mode echocardiogram with Doppler and color Doppler. Other Information Quality : AverageHR: 90bpm INDICATION Dyspnea Pulomonary Artery Pressure RISK FACTORS Hypertension 2D DIMENSIONS RVDd4.0 (2.9-3.5cm)Left Atrium(2D)3.5 (1.6-4.0cm) IVSd1.4 (0.7-1.1cm)Aortic Root(2D)3.4 (2.0-3.7cm) LVDd5.8 (3.9-5.9cm)LVOT Diameter2.1 (1.8-2.4cm) PWd1.2 (0.7-1.1cm)LVDs3.4 (2.5-4.0cm) FS (%) 42.1 %SV119.8 ml LVEF(%)72.4 (>50%) Aortic Valve AoV Peak Kaiser.159.1cm/sAoV VTI25.9cm AO Peak GR.10.1mmHgLVOT Peak Kaiser.100.5cm/s LVOT VTI 17.13cmAO Mean GR.5mmHg BONIFACIO (VMAX)1.70ut8DIT (VTI)2.32cm2 Mitral Valve MV E Shtqnlrs13.6cm/sMV DECEL [id number] MV A Xoqevxpl45.0cm/sMV E Mean Gr.2mmHg MV POL39ahD/A Ratio0.7 MVA (PHT)3.66cm2 TDI E/Lateral E'5.3E/Medial E'6.6 Pulmonary Valve PV Peak Pyjeffau21.0cm/sPV Peak Grad.3mmHg Tricuspid Valve TR P. Pusllbhp259zf/sTR Peak Gr.35mmHg Pulmonary Vein S1 Rlgcmvqg93.6cm/sD2 Ggdibzit33.9cm/s PVa [id number] LEFT VENTRICLE The left ventricle is normal size. There is mild to moderate concentric left ventricular hypertrophy. The left ventricular systolic function is normal. The Ejection Fraction is 65%. There is normal LV s egmental wall motion. Transmitral Doppler flow pattern is Grade I-abnormal relaxation pattern. RIGHT VENTRICLE The right ventricle is normal size. There is normal right ventricular wall thickness. Systolic functi on is borderline reduced. ATRIA The left atrium size is normal. The right atrium size is normal. Interatrial septum bows mildly towar d the left, consistent with elevated right atrial pressures. AORTIC VALVE The aortic valve is normal in structure and function. Doppler and Color Flow revealed trace aortic re gurgitation. There is no significant aortic valvular stenosis. Calculated aortic valve area is 2.19 c m2 with maximum pressure gradient of 12 mmHg and mean pressure gradient of 6 mmHg. MITRAL VALVE The mitral valve is normal in structure and function. There is no evidence of mitral valve prolapse. There is no mitral valve stenosis. Doppler and Color-flow revealed trace mitral regurgitation. TRICUSPID VALVE The tricuspid valve is normal in structure and function. Doppler and Color Flow revealed trace tricus pid regurgitation with an estimated PAP of 47 mmHg. There is no tricuspid valve stenosis. PULMONIC VALVE The pulmonic valve is not well visualized. Doppler and Color Flow revealed trace pulmonic valvular re gurgitation. GREAT VESSELS The aortic root is normal in size. The IVC is normal in size and collapses >50% with inspiration. PERICARDIAL EFFUSION There is no evidence of significant pericardial effusion. Critical Notification Critical Value: No <Conclusion> The left ventricular systolic function is normal. The Ejection Fraction is 65%. There is normal LV segmental wall motion. Transmitral Doppler flow pattern is Grade I-abnormal relaxation pattern. Trace mitral regurgitation. Trace tricuspid regurgitation with an estimated PAP of 47 mmHg. There is no evidence of significant pericardial effusion. Signed by : Jimmie Hare, Electronically Approved : 03/22/2021 14:48:39
== END ==
LOC: ECHO 09:51
PROVIDERS: ATTEND Internal Medicine Pulmonary Disease
DX: I51.7 Cardiomegaly (principal); I27.21 Secondary pulmonary arterial hypertension; I26.99 Other pulmonary embolism without acute cor pulmonale; R06.00 Dyspnea, unspecified
CPT/HCPCS: 93306

== ENCOUNTER → 2021-03-23 | Outpatient (CLI) | payer OTHER, MEDICARE | LOC: PF 09:41 | PROVIDERS: ATTEND Internal Medicine Pulmonary Disease | DX: R06.00 Dyspnea, unspecified (principal) | CPT/HCPCS: 94060; 94640; 94729; 94664 ==

== ENCOUNTER → 2021-06-21 | Outpatient (CLI) | payer OTHER, MEDICARE ==
[~2021-06-21] MED LIST changes: +IOHEXOL 350 MG/ML 100 ML VIAL. IV ONE
[2021-06-21 08:39] LABS: CREATININE 1.5 mg/dL (0.7-1.3); GFR 46.3
--- NOTE | 2021-06-21 11:00 | RAD ---
EXAMINATION: CTA Chest With IV contrast INDICATION:71 years, Male, pulmonary embolism, fibrosing mediastinitis. COMPARISON: None. TECHNIQUE: Spiral CTA was obtained from the jugular notch through the posterior costophrenic recess. 3-D MIPS, sagittal and coronal reformats were obtained. Exposure: One or more of the following individualized dose reduction techniques were utilized for thi s examination: 1. Automated exposure control 2. Adjustment of the mA and/or kV according to patient size 3. Use of iterative reconstruction technique. FINDINGS: Suboptimal exam due to motion artifact. LUNGS/PLEURA: Central airways are patent. Slightly decreasing size of the masslike consolidation in t he left lower lobe measures 2.7 x 2.0 cm, previously 2.8 x 2.4 cm. Similar interstitial and groundgla ss opacities in perihilar and bibasilar lungs. Unchanged tree-in-bud nodular opacities in the right m iddle lobe. No pleural effusion or pneumothorax. No suspicious pulmonary nodule. Calcified granuloma in the left lower lobe. MEDIASTINUM: Suboptimal evaluation for pulmonary embolism due to contrast bolus timing. Similar eccen tric nonocclusive pulmonary emboli in the distal right main pulmonary artery. Similar severe attenuat ion of the right lower pulmonary arteries with punctate calcifications, findings favor fibrosing medi astinitis. No pulmonary emboli in the left pulmonary arteries. No pathologic mediastinal or hilar adenopathy. The thoracic aorta is normal in caliber. The heart is normal in size. No pericardial effusion. Mild calcified coronary atherosclerosis. The visualized thy roid and the esophagus are unremarkable. AXILLA/SOFT TISSUE: No supraclavicular or axillary adenopathy. Regional soft tissues are within tj l limits. UPPER ABDOMEN: The visualized upper abdomen appears unremarkable. BONES: No evidence of acute fractures or aggressive osseous lesions. Old left posterior seventh, eigh th and ninth rib fractures. Multilevel degenerative changes in the spine. IMPRESSION: 1. Suboptimal exam due to contrast bolus timing and motion artifact. Persistent eccentric nonocclusi ve pulmonary emboli in the distal right main pulmonary artery and severe attenuation of the right low er pulmonary arteries with punctate calcifications, findings may relate to fibrosing mediastinitis. N o pulmonary emboli in the left pulmonary arteries. 2. Slightly decreasing size of masslike consolidation in the left lower lobe. Similar interstitial a nd groundglass opacities in the perihilar and bibasilar lungs. Unchanged tree-in-bud nodular opacitie s in the right middle lobe. Continued attenuation or follow-up exam. Electronically signed by: Chelsey Lorenz MD (06/21/2021 10:58 AM) [facility]
== END ==
LOC: CT 07:58
PROVIDERS: ATTEND Internal Medicine Pulmonary Disease
DX: R91.8 Other nonspecific abnormal finding of lung field (principal); I26.99 Other pulmonary embolism without acute cor pulmonale; I25.10 Atherosclerotic heart disease of native coronary artery without angina pectoris; J98.51 Mediastinitis; M47.819 Spondylosis without myelopathy or radiculopathy, site unspecified
CPT/HCPCS: 36415; 71275; 82565; 84520; Q9967